=== PATIENT | female | born 1990 | race Two or more races ===

== ENCOUNTER 2019-05-19 09:03 | Outpatient (CLI) | payer MEDICAID ==
[~2019-05-19] VITALS: Ht 160 cm; Wt 84.8 kg
[2019-05-19 14:32] VITALS: BP 122/71
[2019-05-19] MEDS ORDERED: PROPRANOLOL HCL10 MG ORAL (14:32)
[2019-05-19] MEDS ORDERED: ZOFRAN4 M1 ORAL (14:32)
--- NOTE | 2019-05-19 17:00 | Consultation ---
DATE OF CONSULTATION: 05/19/2019 CONSULTING PHYSICIAN: Singh Galicia M.D. CHIEF COMPLAINT: Abdominal pain and vomiting. HISTORY OF PRESENT ILLNESS: The patient is a 29-year-old female with history of sleeve gastrectomy, now is having complaint of nausea and vomiting, not able to keep anything down. She is requesting endoscopy. PAST MEDICAL HISTORY: 1. GERD. 2. Kidney stones. 3. Hypertension. 4. Mitral valve prolapse. 5. Fibroids. PAST SURGICAL HISTORY: 1. Gastric sleeve in 2018. 2. Deviated septum. MEDICATIONS: Please see medication reconciliation list. SOCIAL HISTORY: The patient denies any tobacco usage, but the patient drinks socially. No IV drug abuse. ALLERGIES: No known drug allergy. REVIEW OF SYSTEMS: Positive for abdominal pain, GERD, constipation, nausea, vomiting, and bloating. PHYSICAL EXAMINATION: VITAL SIGNS: Temperature 97.5, blood pressure 122/71, pulse 70, and respirations 20. HEENT: Normocephalic and atraumatic. Sclerae anicteric. NECK: Supple. No evidence of obvious lymphadenopathy. CARDIOVASCULAR: Regular rate and rhythm. Plus S1 and S2. No obvious murmur. LUNGS: Clear to auscultation bilaterally. ABDOMEN: Positive bowel sounds. Soft and nontender. No rebound. No guarding. No peritoneal sign. EXTREMITIES: No cyanosis, clubbing, or edema. ASSESSMENT AND PLAN: This is a 29-year-old female with history of sleeve gastrectomy, now with having vomiting and not tolerating diet. Recommendation is to do an endoscopy for evaluation of anastomotic stricture. Meanwhile, the patient to continue taking Zofran p.r.n., also was given MiraLAX p.r.n. for constipation. We will try to get the authorization for endoscopy and to see if we can help with her symptoms. Singh Galicia M.D. DR: [place] JOB#: [id number] CC:
== END 2019-05-19 11:03 | disposition home or self-care (01) ==
LOC: PAN 09:03
DX: R10.9 Unspecified abdominal pain (principal); K21.9 Gastro-esophageal reflux disease without esophagitis; I10 Essential (primary) hypertension; Z87.442 Personal history of urinary calculi; Z98.84 Bariatric surgery status; K59.00 Constipation, unspecified; R14.0 Abdominal distension (gaseous); R11.2 Nausea with vomiting, unspecified
CPT/HCPCS: G0463

== ENCOUNTER 2019-08-11 09:49 | Outpatient (CLI) | payer MEDICAID ==
[~2019-08-11 09:49] MED LIST: PROPRANOLOL HCL10 MG ORAL; ZOFRAN4 M1 ORAL
--- NOTE | 2019-08-11 10:51 | General Progress Note ---
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
[2019-08-11 13:33] VITALS: BP 113/74
== END 2019-08-11 11:49 | disposition home or self-care (01) ==
LOC: PAN 09:49
DX: K21.9 Gastro-esophageal reflux disease without esophagitis (principal); Z98.84 Bariatric surgery status; K29.70 Gastritis, unspecified, without bleeding; Z88.0 Allergy status to penicillin
CPT/HCPCS: 99212